=== PATIENT | female | born 1970 | race Caucasian/White ===

== ENCOUNTER 2017-05-05 02:02 | Emergency (ER) | payer OTHER ==
--- NOTE | 2017-05-05 02:44 | XR ---
EXAM: XR Chest, 2 Views CLINICAL HISTORY: Reason: Pain TECHNIQUE: Frontal and lateral views of the chest. COMPARISON: No relevant prior studies available. FINDINGS: Lungs: Unremarkable. No consolidation. Pleural space: Unremarkable. No pneumothorax. Heart: Unremarkable. No cardiomegaly. Mediastinum: Unremarkable. Bones/joints: Unremarkable. IMPRESSION: No acute radiographic findings.
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
[2017-05-05 03:38] VITALS: BP 121/70; PULSE 79; RESP 18; TEMP 98.4
== END 2017-05-05 03:38 | disposition home or self-care (01) ==
LOC: EC 02:02
DX: S21.012A Laceration without foreign body of left breast, initial encounter (principal); F17.200 Nicotine dependence, unspecified, uncomplicated; Z88.8 Allergy status to other drugs, medicaments and biological substances; X99.1XXA Assault by knife, initial encounter; Y92.009 Unspecified place in unspecified non-institutional (private) residence as the place of occurrence of the external cause
CPT/HCPCS: 12002; 71046; 99284

== ENCOUNTER 2018-07-18 14:22 | Emergency (ER) | payer OTHER ==
[2018-07-18 14:35] VITALS: BP 98/64; PULSE 111; RESP 16; TEMP 99.1
[2018-07-18] MEDS ORDERED: KETOROLAC 60 MG/2 ML VIAL IM STA (14:59)
[2018-07-18] MEDS ORDERED: predniSONE 20 MG TAB PO STA (14:59)
--- NOTE | 2018-07-18 15:03 | ED ---
Upper Extremity HPI - General Chief Complaint: Extremity Injury, Upper Stated Complaint: wrist pain Time Seen by Provider: 07/18/18 14:43 Source: patient Mode of arrival: ambulatory - History of Present Illness Initial Comments: 48-year-old female with past medical history of bilateral carpal tunnel presented for pain of the wrist bilaterally. 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 She states that she is increasing sharp shooting pain in the wrist bilaterally. She states that increases with any range of motion. She states at times it feels like her fingers are asleep. Especially digits 1 through 3. Patient denies injury to the head neck or wrist. Patient denies muscle weakness, loss sensation, speech changes, gait changes or any other concerning symptoms. Patient denies fever chills night sweats or erythema of the wrist. Remaining review of systems negative, patient denies any recent recent fall trauma to neck or back, shortness of breath, chest pain, back pain, abdominal pain, nausea or vomiting, dysuria or hematuria, constipation or diarrhea, headaches or visual changes, or any other complaints. - Related Data Previous Rx's Medication Instructions Recorded Cephalexin [Keflex] 500 mg PO Q8HR #21 cap 05/05/17 predniSONE 20 mg PO BID 4 Days #8 tab 07/18/18 Allergies Allergy/AdvReac Type Severity Reaction Status Date / Time cyclobenzaprine HCl Allergy Rash/Hives Verified 07/18/18 14:38 [From Flexeril] Review of Systems ROS Statement: Those systems with pertinent positive or pertinent negative responses have been documented in the HPI. ROS Other: All systems not noted in ROS Statement are negative. Past Medical History Past Medical History: No Reported History History of Any Multi-Drug Resistant Organisms: None Reported Past Surgical History: Section, Tubal Ligation Additional Past Surgical History / Comment(s): d & c Past Psychological History: No Psychological Hx Reported Smoking Status: Current every day smoker Past Alcohol Use History: Occasional Past Drug Use History: None Reported General Exam - General Exam Comments Initial Comments: General: The patient is awake and alert, in no distress, and does not appear acutely ill. Eye: +3 mm pupils are equal, round and reactive to light, extra-ocular movements are intact. No nystagmus. There is normal conjunctiva bilaterally. No signs of icterus. Ears, nose, mouth and throat: There are moist mucous membranes and no oral lesions. Neck: The neck is supple, there is no tenderness or JVD. Cardiovascular: There is a regular rate and rhythm. No murmur, rub or gallop is appreciated. Respiratory: Lungs are clear to auscultation, respirations are non-labored, breath sounds are equal. No wheezes, stridor, rales, or rhonchi. Gastrointestinal: Soft, non-distended, non-tender abdomen without masses or organomegaly noted. There is no rebound or guarding present. No CVA tenderness. Bowel sounds are unremarkable. Musculoskeletal: Normal ROM, at shoulder, elnow and wrist, pain with ROM of wrist b/l. Strength 5/5 at wrists and UE b/l. Sensation intact. Radial pulses equal bilaterally 2+. (+) phalen b/l. (+) tinels b/l. Okay fingers crossed finger opposition okay sign intact bilaterally on her median and radial nerve intact. No evidence of wrist drop. Neurological: A&O x 3. CN II-XII intact, There are no obvious motor or sensory deficits. Coordination appears grossly intact. Speech is normal. Skin: Skin is warm and dry and no rashes or lesions are noted. Psychiatric: Cooperative, appropriate mood & affect, normal judgment. Course Vital Signs 07/18/18 07/18/18 14:32 15:40 Temperature 99.1 F 99.1 F Pulse Rate 111 H 111 H Respiratory 16 16 Rate Blood Pressure 98/64 98/64 O2 Sat by Pulse 99 99 Oximetry Medical Decision Making - Medical Decision Making 48-year-old female with history of carpal tunnel bilaterally with a new job consisting of more movement of the wrists presenting today for chief complaint of sharp shooting bilateral wrist pain. Positive Phalen's positive Tinel's. No focal deficits on examination. Patient denies neck or back injury. Patient is provided prescription for prednisone. Patient was instructed to follow-up with surgery for consultation. Patient is agreeable with plan of care and discharge. Patient was provided work note for time off in order to rest wrist bilaterally. Symptomatic care discussed as well a return parameters, discussed case with attending provider Dr. Beauchamp prior to patients discharge. Disposition Clinical Impression: Carpal tunnel syndrome Disposition: HOME SELF-CARE Condition: Good Instructions (If sedation given, give patient instructions): Paresthesia (ED) Additional Instructions: Please use medication as discussed. Please follow-up with family doctor tomorrow as scheduled and orthopedic surgery in next 2-3 days. Please return to emergency room if the symptoms increase or worsen or for any other concerns. Prescriptions: predniSONE 20 mg PO BID 4 Days #8 tab Is patient prescribed a controlled substance at d/c from ED?: No Referrals: Jimbo Owens MD [Primary Care Provider] - 1-2 days Ulysses Be DO [Medical Doctor] - 1-2 days Time of Disposition: 15:02
== END 2018-07-18 15:40 | disposition home or self-care (01) ==
LOC: EC 14:22
DX: G56.03 Carpal tunnel syndrome, bilateral upper limbs (principal); F17.200 Nicotine dependence, unspecified, uncomplicated; Z88.8 Allergy status to other drugs, medicaments and biological substances
CPT/HCPCS: 99283; 96372; J1885; J7512

== ENCOUNTER → 2019-04-18 | Outpatient (CLI) | payer OTHER ==
--- NOTE | 2019-04-18 11:45 | MM ---
Reason for exam: screening (asymptomatic). Baseline mammogram. History: Patient history of other cancer. Physical Findings: Nurse did not find any significant physical abnormalities on exam. [facility] Diagnostic Mammo w CAD KRISTIN Bilateral CC and MLO view(s) were taken. The breast tissue is heterogeneously dense. This may lower the sensitivity of mammography. Very dense tissues in the upper outer quadrant's. No suspicious calcification. These results were verbally communicated with the patient and result sheet given to the patient on 04/18/19. ASSESSMENT: Incomplete: need additional imaging evaluation, BI-RAD 0 RECOMMENDATION: Ultrasound of both breasts. upper outer quadrant's
--- NOTE | 2019-04-18 11:48 | USB ---
Reason for exam: additional evaluation requested from abnormal screening. History: Patient history of other cancer. US Breast Workup Limited KRISTIN Right limited breast ultrasound including focal area of concern, retroareolar and axilla demonstrates no cystic or solid lesion seen. Left limited breast ultrasound including focal area of concern, retroareolar and axilla demonstrates no cystic or solid lesion seen. Scanned upper outer quadrant's in both breasts. No cystic or solid lesion. These results were verbally communicated with the patient and result sheet given to the patient on 04/18/19. ASSESSMENT: Benign, BI-RAD 2 RECOMMENDATION: Routine screening mammogram of both breasts in 1 year.
== END | disposition home or self-care (01) ==
LOC: RADMAMWWP 10:28
PROVIDERS: ATTEND Family Medicine
DX: N64.4 Mastodynia (principal); R92.8 Other abnormal and inconclusive findings on diagnostic imaging of breast
CPT/HCPCS: 77066

== ENCOUNTER → 2019-05-31 | Outpatient (CLI) | payer OTHER ==
[2019-05-31 08:52] LABS: Basophils % (A) 0 %; Eosinophils # (A) 0.6 k/uL (0-0.7); Eosinophils % (A) 7 %; HCT 39.5 % (34.0-46.0); Lymphocytes # (A) 2.8 k/uL (1.0-4.8); Lymphocytes % (A) 32 %; MCH 32.4 pg (25.0-35.0); MCHC 32.8 g/dL (31.0-37.0); MCV 98.9 fL (80.0-100.0); Mean Platelet Volume 7.1; Monocytes # (A) 0.5 k/uL (0-1.0); Monocytes % (A) 6 %; Neutrophils # (A) 4.5 k/uL (1.3-7.7); Neutrophils % (A) 52 %; Platelet Count 252 k/uL (150-450); RDW 13.7 % (11.5-15.5); WBC 8.8 k/uL (3.8-10.6)
[2019-05-31 17:25] LABS: Valproic Acid (Depakene) 51.5 ug/mL (50.0-100.0)
[2019-05-31 18:22] LABS: African American GFR (CKD) 125.8 (60.0-200.0); Albumin 4.1 g/dL (3.80-4.90); Albumin/Globulin Ratio 1.95 (1.60-3.17); Anion Gap 9.2 mmol/L (4.00-12.00); BUN/Creat Ratio 28.33 Ratio (12.00-20.00); Calcium 9.2 mg/dL (8.7-10.3); Carbon Dioxide 27.8 mmol/L (21.6-31.8); Globulin 2.1 g/dL (1.6-3.3); Non-African American GFR(CKD) 108.5 (60.0-200.0); Potassium 4.3 mmol/L (3.5-5.5); Total Bilirubin 0.2 mg/dL (0.2-1.2); Total Protein 6.2 g/dL (6.2-8.2)
[2019-05-31 18:30] LABS: T4, Free (Free Thyroxine) 1.1 ng/dL (0.80-1.80)
== END | disposition home or self-care (01) ==
LOC: LABWHC1 08:22
PROVIDERS: ATTEND Psychiatry & Neurology Psychiatry
DX: Z51.81 Encounter for therapeutic drug level monitoring (principal); Z79.899 Other long term (current) drug therapy
CPT/HCPCS: 36415; 80053; 80164; 84439; 84443; 85025

== ENCOUNTER → 2020-02-16 | Outpatient (CLI) | payer OTHER ==
[2020-02-16 12:10] LABS: Basophils # (A) 0.1 k/uL (0-0.2); Basophils % (A) 1 %; Eosinophils # (A) 0.3 k/uL (0-0.7); Eosinophils % (A) 4 %; HGB 14.4 gm/dL (11.4-16.0); Lymphocytes % (A) 39 %; MCHC 33.4 g/dL (31.0-37.0); MCV 101.8 fL (80.0-100.0); Mean Platelet Volume 7.2; Monocytes # (A) 0.5 k/uL (0-1.0); Monocytes % (A) 7 %; Neutrophils # (A) 3.7 k/uL (1.3-7.7); Neutrophils % (A) 47 %; Platelet Count 221 k/uL (150-450); RBC 4.23 m/uL (3.80-5.40); RDW 12.5 % (11.5-15.5); WBC 7.9 k/uL (3.8-10.6)
[2020-02-16 19:40] LABS: African American GFR (CKD) 101.8 (60.0-200.0); Albumin 4.3 g/dL (3.80-4.90); Albumin/Globulin Ratio 1.59 (1.60-3.17); Anion Gap 6.1 mmol/L (4.00-12.00); BUN/Creat Ratio 11.25 Ratio (12.00-20.00); Calcium 9.7 mg/dL (8.7-10.3); Carbon Dioxide 30.9 mmol/L (21.6-31.8); Globulin 2.7 g/dL (1.6-3.3); Non-African American GFR(CKD) 87.8 (60.0-200.0); Potassium 4.6 mmol/L (3.5-5.5); Total Bilirubin 0.3 mg/dL (0.2-1.2); Valproic Acid (Depakene) 80.8 ug/mL (50.0-100.0)
== END | disposition home or self-care (01) ==
LOC: LABWHC1 11:01
PROVIDERS: ATTEND Psychiatry & Neurology Psychiatry
DX: Z51.81 Encounter for therapeutic drug level monitoring (principal); Z79.899 Other long term (current) drug therapy
CPT/HCPCS: 36415; 80053; 80164; 83036; 84439; 84443; 85025